=== PATIENT | male | born 1960 | race Caucasian/White ===

== ENCOUNTER 2025-02-21 19:01 | Inpatient (IN) | payer SELFPAY ==
[~2025-02-21] VITALS: Ht 175.3 cm; Wt 81.6 kg
[2025-02-21] VITALS (10 sets, daily range): BP systolic 171–190; BP diastolic 84–112; PULSE 80–91; RESP 20–31; TEMP 37.2; O2SAT 80–100
[2025-02-21] MEDS: FUROSEMIDE 40MG/4ML VIAL IVP ONE (19:11)
[2025-02-21] MEDS: NITROGLYCERIN 50MG PREMIX 250 ML IV ONE (19:14)
[2025-02-21 19:26] LABS: BASOPHILS % 0.8 % (0.0-2.0); DIFFERENTIAL COMMENT 0; EOSINOPHILS % 1.8 % (0.0-5.0); HEMATOCRIT. 43.3 % (42.0-52.0); HEMOGLOBIN. 13.9 g/dL (14.0-18.0); LYMPHOCYTES % 34.3 % (20.0-50.0); MEAN CORPUSCULAR HGB CONC 32.1 g/dL (31.0-37.0); MEAN CORPUSCULAR VOLUME 93.2 fL (80.0-94.0); MEAN PLATELET VOLUME 11.7 fl (7.4-10.4); MONOCYTES % 4.1 % (2.0-8.0); PLATELET 172 x1000/uL (130-400); RED BLOOD CELL COUNT 4.65 mill/uL (4.7-6.1); RED CELL DISTRIBUTION WIDTH 15.1 % (11.6-14.6); WHITE BLOOD COUNT 13.9 x1000/uL (4.5-11.0)
[2025-02-21 19:37] LABS: CHLORIDE 108 mEq/L (98-107); SODIUM 140 mEq/L (136-145)
[2025-02-21 19:38] LABS: CALCIUM 8.3 mg/dL (8.7-10.4); CARBON DIOXIDE 22 mEq/L (21-32)
[2025-02-21 19:43] LABS: CREATININE 1.5 mg/dL (0.6-1.3); GLUCOSE 389 mg/dL (70-105); UREA NITROGEN BLOOD 19 mg/dL (9-23)
[2025-02-21 20:00] LABS: LACTIC ACID 3.6 mmol/L (0.4-2.0); TROPONIN I HIGH SENSITIVITY 410 ng/L (3.0-53)
[2025-02-21 20:03] LABS: BG BASE EXCESS -5.8 mmol/L (-2.0-3.0); BG CARBOXYHEMOGLOBIN 0.4 % (0.5-1.5); BG DEOXYHEMOGLOBIN 0.8 % (0.0-5.0); BG FRACTION INSPIRED OXYGEN 100; BG HCO3 ACT 20.1 mmol/L (21.0-28.0); BG METHEMOGLOBIN 0.3 % (0.5-1.5); BG OXYGEN SATURATION 99.2 % (94.0-98.0); BG OXYHEMOGLOBIN 98.5 % (94.0-98.0); BG PCO2 41.2 mmHg (35.0-48.0); BG PH 7.307 (7.350-7.450); BG PO2 366.5 mmHg (83.0-108.0); BG SAMPLE SITE RIGHT RADIAL; BG TOTAL HEMOGLOBIN 12.9 g/dL (13.5-17.5); BG VENT MODE MASK - BIPAP
[2025-02-21] MEDS ORDERED: DOCUSATE SODIUM 100MG CAPSULE PO PRN (21:00)
[2025-02-21] MEDS ORDERED: GUAIFENESIN 200MG/10ML SUGAR FREE UDC PO PRN (21:00)
[2025-02-21] MEDS ORDERED: IPRATROPIUM/ALBUTEROL 0.5-3(2.5)MG/3ML NEB HHN PRN (21:00)
[2025-02-21] MEDS ORDERED: ONDANSETRON HCL 4MG/2ML INJ IV PRN (21:00)
[2025-02-21] MEDS ORDERED: ACETAMINOPHEN 325MG TABLET PO PRN ×2 (21:00)
[2025-02-21 21:20] LABS: INR 0.9; PARTIAL THROMBOPLASTIN TIME 22.8 sec (23.4-31.0); PROTHROMBIN TIME 10.2 sec (9.6-11.0)
[2025-02-21 21:40] LABS: CLARITY URINE CLEAR (CLEAR); COLOR URINE YELLOW (YELLOW); GLUCOSE URINE 2+ (NEGATIVE); KETONES URINE NEGATIVE (NEGATIVE); LEUKOCYTE ESTERASE URINE NEGATIVE (NEGATIVE); NITRITE URINE NEGATIVE (NEGATIVE); OCCULT BLOOD URINE 1+ (NEGATIVE); PH URINE 5.5 (4.5-8.0); PROTEIN URINE 3+ (NEGATIVE); SPECIFIC GRAVITY URINE 1.011 (1.005-1.030); UROBILINOGEN URINE 0.2 E.U./dL (0.2-1.0)
[2025-02-21] MEDS ORDERED: DEXTROSE 50% WATER 50ML SYRINGE IV PRN (21:45)
[2025-02-21 21:53] LABS: *AMPHETAMINES SCREEN URINE NEGATIVE (NEGATIVE)
[2025-02-21 21:54] LABS: *BARBITURATES SCREEN URINE NEGATIVE (NEGATIVE); *BENZODIAZEPINES SCREEN URINE NEGATIVE (NEGATIVE); *COCAINE SCREEN URINE NEGATIVE (NEGATIVE); CANNABINOID URINE SCREEN NEGATIVE (NEGATIVE); ECSTASY MDMA SCREEN URINE NEGATIVE (NEGATIVE); METHADONE URINE SCREEN NEGATIVE (NEGATIVE); OPIATES URINE SCREEN NEGATIVE (NEGATIVE); PHENCYCLIDINE URINE SCREEN NEGATIVE (NEGATIVE)
[2025-02-21 22:01] LABS: WBC URINE NONE SEEN /hpf (0-2)
[2025-02-21 22:02] LABS: BACTERIA URINE NONE SEEN; RBC URINE 0-2 /hpf (0-2); SQUAMOUS EPITHELIAL CELL URINE FEW /lpf (RARE/1+)
[2025-02-21] MEDS: PANTOPRAZOLE 40MG DR TABLET PO SCH (22:47)
[2025-02-21] MEDS: FUROSEMIDE 40MG/4ML VIAL IV SCH (22:47)
[2025-02-22] VITALS (47 sets, daily range): BP systolic 124–190; BP diastolic 56–99; PULSE 60–88; RESP 16–28; TEMP 36.5–37.3; O2SAT 91–100
[2025-02-22 00:01] LABS: INFLUENZA TYPE A Presumptive Negative (Pres. Neg.); INFLUENZA TYPE B Presumptive Negative (Pres. Neg.)
[2025-02-22 00:02] LABS: RESPIRATORY SYNCYTIAL VIRUS Not Detected (Not Detectd)
[2025-02-22] MEDS: CLONIDINE 0.1MG TABLET PO PRN (00:14)
[2025-02-22] MEDS: NITROGLYCERIN 50MG PREMIX 250 ML IV PRN (01:41)
[2025-02-22] MEDS: IPRATROPIUM/ALBUTEROL 0.5-3(2.5)MG/3ML NEB HHN SCH (03:05)
[2025-02-22] MEDS: AZITHROMYCIN 500MG/250ML 250 ML IV SCH (03:46)
[2025-02-22] MEDS ORDERED: HYDRALAZINE 20MG/ML VIAL IV PRN (04:00)
[2025-02-22 05:11] LABS: POTASSIUM 4.5 mEq/L (3.5-5.1)
[2025-02-22 05:12] LABS: CALCIUM 8.1 mg/dL (8.7-10.4)
[2025-02-22 05:17] LABS: CREATININE 1.4 mg/dL (0.6-1.3)
[2025-02-22 05:18] LABS: PHOSPHORUS 3.1 mg/dL (2.5-4.9)
[2025-02-22 05:18] LABS: BASOPHILS % 0.2 % (0.0-2.0); DIFFERENTIAL COMMENT 0; EOSINOPHILS % 0.3 % (0.0-5.0); HEMOGLOBIN. 11.5 g/dL (14.0-18.0); LYMPHOCYTES % 9.2 % (20.0-50.0); MEAN CORPUSCULAR HEMOGLOBIN 30.2 pg (28.0-32.0); MEAN CORPUSCULAR HGB CONC 32.8 g/dL (31.0-37.0); MEAN CORPUSCULAR VOLUME 92.4 fL (80.0-94.0); MEAN PLATELET VOLUME 11.8 fl (7.4-10.4); MONOCYTES % 5.9 % (2.0-8.0); NEUTROPHILS % 84.4 % (40.0-76.0); PLATELET 126 x1000/uL (130-400); RED BLOOD CELL COUNT 3.79 mill/uL (4.7-6.1); RED CELL DISTRIBUTION WIDTH 14.6 % (11.6-14.6); WHITE BLOOD COUNT 11.5 x1000/uL (4.5-11.0)
[2025-02-22 05:20] LABS: T4 FREE 1.1 ng/dL (0.89-1.76); THYROID STIMULATING HORMONE 3.08 uIU/mL (0.55-4.78)
[2025-02-22 05:29] LABS: HEPATITIS B SURFACE ANTIGEN NEGATIVE (Negative)
[2025-02-22 05:50] LABS: HEPATITIS C AB NON REACTIVE (Neg) (Negative)
[2025-02-22] MEDS: BLOOD SUGAR DIAGNOSTIC STRIP TEST SCH (06:28)
[2025-02-22] MEDS: INSULIN LISPRO 100 UNITS/ML SUBCUT SCH (06:32)
[2025-02-22] MEDS ORDERED: ENALAPRIL 5MG TABLET PO SCH (09:00)
[2025-02-22] MEDS ORDERED: METOPROLOL SUCCINATE 50MG ER TABLET PO SCH (09:00)
[2025-02-22] MEDS ORDERED: LISINOPRIL 20MG TABLET PO SCH (09:00)
[2025-02-22] MEDS: ENOXAPARIN 30MG/0.3ML SYR SUBCUT SCH (09:14)
[2025-02-22] MEDS: ASPIRIN 81MG TABLET PO SCH (09:14)
[2025-02-22] MEDS: MAGNESIUM 2 G PREMIX 50 ML IV ONE (09:14)
[2025-02-22] MEDS: AMLODIPINE 10MG TABLET PO SCH (09:15)
[2025-02-22 12:14] LABS: TROPONIN I HIGH SENSITIVITY 3846 ng/L (3.0-53)
[2025-02-22] MEDS: HYDRALAZINE HCL 50MG TABLET PO SCH (13:44)
[2025-02-22] MEDS ORDERED: FUROSEMIDE 40MG/4ML VIAL IV SCH (17:15)
[2025-02-22] MEDS: FUROSEMIDE 40MG/4ML VIAL IV SCH (17:36)
[2025-02-22] MEDS ORDERED: LOSA50TA41 PO (18:29)
[2025-02-22] MEDS: MAGNESIUM OXIDE 400MG TABLET PO SCH (18:30)
[2025-02-22] MEDS: ENOXAPARIN 80MG/0.8ML SYR SUBCUT SCH (18:30)
[2025-02-22] MEDS: NITROGLYCERIN OINT 1GM/INCH UDPKT TD SCH (18:31)
[2025-02-22] MEDS ORDERED: *PATIENT'S OWN MEDICATION STORAGE XX SCH (19:00)
[2025-02-22 21:07] LABS: TROPONIN I HIGH SENSITIVITY 4358 ng/L (3.0-53)
[2025-02-22] MEDS: ATORVASTATIN CALCIUM 40MG TABLET PO SCH (21:15)
[2025-02-23] VITALS: BP 140/63; PULSE 73; RESP 18; TEMP 36.6; O2SAT 99
[2025-02-23 02:44] LABS: TROPONIN I HIGH SENSITIVITY 4412 ng/L (3.0-53)
[2025-02-23 04:00] VITALS: BP 177/78; PULSE 73; RESP 18; TEMP 36.6; O2SAT 99
[2025-02-23 08:00] VITALS: BP 155/77; PULSE 85; RESP 18; TEMP 36.4; O2SAT 98
[2025-02-23 09:16] VITALS: PULSE 99; RESP 18; O2SAT 98
[2025-02-23 09:57] LABS: HEMATOCRIT 37.3 % (42.0-52.0); HEMOGLOBIN 12.5 g/dL (14.0-18.0); MEAN CORPUSCULAR HEMOGLOBIN 30.2 pg (28.0-32.0); MEAN CORPUSCULAR HGB CONC 33.5 g/dL (31.0-37.0); MEAN CORPUSCULAR VOLUME 90.1 fL (80.0-94.0); PLATELET 121 x1000/uL (130-400); RED BLOOD CELL COUNT 4.14 mill/uL (4.7-6.1); RED CELL DISTRIBUTION WIDTH 14.6 % (11.6-14.6); WHITE BLOOD COUNT 7.5 x1000/uL (4.5-11.0)
[2025-02-23 11:09] LABS: TROPONIN I HIGH SENSITIVITY 4370 ng/L (3.0-53)
[2025-02-23 11:24] LABS: CHLORIDE 107 mEq/L (98-107); POTASSIUM 4.2 mEq/L (3.5-5.1); SODIUM 143 mEq/L (136-145)
[2025-02-23 11:25] LABS: CARBON DIOXIDE 25 mEq/L (21-32)
[2025-02-23 11:26] LABS: CALCIUM 8.7 mg/dL (8.7-10.4)
[2025-02-23 11:30] LABS: CREATININE 1.7 mg/dL (0.6-1.3)
[2025-02-23 11:31] LABS: GLUCOSE 200 mg/dL (70-105); UREA NITROGEN BLOOD 25 mg/dL (9-23)
[2025-02-23 11:32] LABS: ALANINE AMINOTRANSFERASE 9 IU/L (10-49); ALBUMIN 3.3 g/dL (3.2-4.8); ASPARTATE AMINOTRANSFERASE 20 IU/L (<34)
[2025-02-23 11:33] LABS: BILIRUBIN DIRECT 0.2 mg/dL (<=3.0); BILIRUBIN TOTAL 0.7 mg/dL (0.1-1.0); PROTEIN TOTAL 5.1 g/dL (6.0-8.3)
== END 2025-02-23 11:55 | disposition left against medical advice (07) | DRG 133 ==
LOC: ER 19:01 → CMPBEDREQ 20:29 → ENRESERV 21:24 → MICUSO 21:55 → 8WST 02-22 18:10
PROVIDERS: ADMIT Hospitalist; ATTEND Hospitalist
PROC: 5A09357 Assistance with Respiratory Ventilation, Less than 24 Consecutive Hours, Continuous Positive Airway Pressure (ICD-10-PCS; principal; 2025-02-21)
PROC: 5A09357 Assistance with Respiratory Ventilation, Less than 24 Consecutive Hours, Continuous Positive Airway Pressure (ICD-10-PCS; 2025-02-22)
DX: J96.01 Acute respiratory failure with hypoxia (principal); I21.A1 Myocardial infarction type 2; I50.23 Acute on chronic systolic (congestive) heart failure; N17.9 Acute kidney failure, unspecified; D69.6 Thrombocytopenia, unspecified; E87.20 Acidosis, unspecified; J44.1 Chronic obstructive pulmonary disease with (acute) exacerbation; I11.0 Hypertensive heart disease with heart failure; E11.65 Type 2 diabetes mellitus with hyperglycemia; D50.9 Iron deficiency anemia, unspecified; I16.1 Hypertensive emergency; I44.0 Atrioventricular block, first degree; M19.012 Primary osteoarthritis, left shoulder; M19.011 Primary osteoarthritis, right shoulder; Z91.148 Patient's other noncompliance with medication regimen for other reason; E78.1 Pure hyperglyceridemia; Z79.82 Long term (current) use of aspirin; Z53.29 Procedure and treatment not carried out because of patient's decision for other reasons; F17.210 Nicotine dependence, cigarettes, uncomplicated; I25.2 Old myocardial infarction; Z55.6 Problems related to health literacy; Z79.4 Long term (current) use of insulin; Z79.899 Other long term (current) drug therapy
CPT/HCPCS: 36415; 36600; 71045; 80048; 80061; 80076; 80305; 81003; 82375; 82553; 82805; 82962; 83036; 83520; 83605; 83735; 83880; 84100; 84145; 84439; 84443; 84484; 85025; 85027; 86705; 87340; 87420; 87804; 93005; 93306; 93970; 94070; 94640; 94660; 94664; 94760; 96365; 96375; 99291; J0456; J1650; J1815; J1940; J3475; J3490